=== PATIENT | male | born 1945 | race Caucasian/White ===

== ENCOUNTER 2020-11-07 15:38 | Inpatient (IN) | payer MEDICARE, OTHER, SELFPAY ==
[2020-11-07] VITALS (44 sets, daily range): BP systolic 96–126; BP diastolic 63–88; PULSE 69–115; RESP 13–25; TEMP 35.9–36.8; O2SAT 93–100; BMI 31.6
--- NOTE | ~2020-11-07 | XR_ITS ---
EXAMINATION: XR chest ET placement INDICATION: Endotracheal tube insertion, respiratory failure TECHNIQUE: Portable AP chest at 1555 hours COMPARISON: None available FINDINGS: The endotracheal tube ends approximately 6.4 cm above the ele. The nasogastric tube is f ollowed as far as the stomach. Its tip is beyond the inferior margin of the radiograph. The lungs are free of acute opacities. Cardiomegaly is noted. There is no pleural effusion or pneumothorax. The ri t costophrenic angle is excluded from the examination. IMPRESSION: 1. Endotracheal tube approximately 6.4 cm above the ele. Nasogastric tube visualized as far as the stomach. Reviewed, dictated and finalized at location A. BUS DRIVER IMPRESSION: 1. Endotracheal tube approximately 6.4 cm above the ele. Nasogastric tube vi sualized as far as the stomach.
--- NOTE | ~2020-11-07 | XR_ITS ---
EXAMINATION: XR chest 1V portable INDICATION: Respiratory failure TECHNIQUE: Portable AP chest at 0525 hours COMPARISON: 11/11/2020 FINDINGS: Minimal bibasilar airspace opacities persist without significant change. The previously josé miguel cribed small right pleural effusion is no longer evident. There is no pneumothorax. Stable cardiomega ly is noted. IMPRESSION: 1. Stable bibasilar airspace opacity, consistent with atelectasis versus pneumonia. Reviewed, dictated and finalized at location A. ING OPERATOR IMPRESSION: 1. Stable bibasilar airspace opacity, consistent with atelectasis versus pneumo hakan.
--- NOTE | ~2020-11-07 | XR_ITS ---
XR chest 1V portable DATE: 11/09/2020 06:10 INDICATION: Respiratory failure TECHNIQUE: Portable AP chest on November 09, 2020 0514 hours COMPARISON: November 07, 2020 portable AP chest at 0355 hours FINDINGS: There is mild pulmonary vascular congestion and prominence of the minor fissure suggesting subpleural edema. There are infiltrates and/atelectasis in the lower lung zones. There is elevation of the right leaf o f the diaphragm. Minimal pleural effusions are suggested. Heart size appears borderline. ET and NG tubes have been removed since November 07, 2020. IMPRESSION: Mild congestive changes Bilateral lower lung infiltrate and/atelectasis Reviewed, dictated and finalized at location A. [place] PHARMACY TECHNICIAN
--- NOTE | ~2020-11-07 | CT_ITS ---
EXAMINATION: CT brain wo con DATE: 11/07/2020 17:53 INDICATION: Status post code TECHNIQUE: Computed tomography (CT) of the head was performed without intravenous contrast. Sagittal and coronal reconstructions were performed. The mA was adjusted according to patient size. Iterative reconstruction technique was employed. The dose-length product was 605.33 mGy-cm. COMPARISON: None FINDINGS: No acute intracranial hemorrhage, acute infarction or abnormal extra axial fluid collection. There is mild scattered white matter hypoattenuation consistent with chronic small vessel ischemic disease. V entricles are normal and symmetric. No mass/mass effect. The orbits and mastoid air cells are normal. Right maxillary sinus atelectasis with complete opacification of the small maxillary sinus with inwa rd bowing of the sinus noyola. A severe mucosal thickening in the left maxillary, right sphenoid and b ilateral ethmoid and frontal sinuses. IMPRESSION: 1. Normal aging brain. No acute intracranial process. 2. Right maxillary sinus atelectasis. Reviewed, dictated and finalized at location A. ECURITY OFFICER
--- NOTE | ~2020-11-07 | XR_ITS ---
EXAMINATION: XR chest 1V portable INDICATION: Respiratory failure TECHNIQUE: Portable AP chest at 0519 hours COMPARISON: 11/10/2020 FINDINGS: There are minimal airspace opacities of the lung bases. There is a small right pleural effu pedro. No pneumothorax is identified. Cardiomegaly is noted. IMPRESSION: 1. Minimal bibasilar airspace opacity, consistent with atelectasis versus pneumonia. Reviewed, dictated and finalized at location A. ERCIAL LOAN COLLECTION OFFICER IMPRESSION: 1. Minimal bibasilar airspace opacity, consistent with atelectasis versus pneum onia.
--- NOTE | ~2020-11-07 | CT_ITS ---
EXAMINATION: CTA chest PE protocol DATE: 11/07/2020 20:25 INDICATION: Cardiac arrest TECHNIQUE: Computed tomography (CT) pulmonary angiogram of the chest was performed with 100 mL Omnipa que-350 intravenous contrast. Additional 3D reconstructions utilizing coronal maximum intensity proje ction (MIP) were performed. Automated exposure control and iterative reconstruction technique were em ployed. The dose-length product was 1037.37 mGy-cm. COMPARISON: None FINDINGS: Excellent contrast opacification of the pulmonary arteries. There is mild streak artifact from dense contrast in the superior vena cava and right atrium. Mild scattered respiratory motion artifact which does not significantly limit evaluation. No pulmonary embolism. Dependent consolidation with associa sharlene volume loss consistent with atelectasis in the bilateral lower lobes. No other airspace disease t o suggest pneumonia. No pulmonary edema, pleural effusion or pneumothorax. Moderate cardiomegaly. Ath erosclerotic coronary artery calcifications. No pericardial effusion. Thoracic aorta is normal in rosalio iber. Endotracheal tube tip 5.6 similar above the ele. Nasogastric tube tip in the stomach. No pat hologically enlarged thoracic lymphadenopathy. Cholecystectomy clips at the gallbladder fossa. Visual ized upper abdomen is otherwise unremarkable. Moderate lower thoracic spondylosis. IMPRESSION: 1. No pulmonary embolism. 2. Atelectasis in the dependent aspect of the bilateral lower lobes. 3. Cardiomegaly. Reviewed, dictated and finalized at location A. USSION TUNER
--- NOTE | ~2020-11-07 | XR_ITS ---
XR chest 1V portable DATE: 11/10/2020 06:22 INDICATION: Respiratory failure TECHNIQUE: Portable upright AP chest on November 10, 2020 at 0532 hours COMPARISON: November 09, 2020 portable AP chest at 0514 hours FINDINGS: There is mild elevation the right leaf of the diaphragm. There are infiltrates and/atelectasis in both lower lung zones. There is pulmonary vascular congestio n and redistribution. Small pleural effusions are suggested. IMPRESSION: Congestive changes and bilateral lower lung infiltrate and/atelectasis, with little inter marry change since November 09, 2020 Reviewed, dictated and finalized at location A. SAFETY AUDITOR IMPRESSION: Congestive changes and bilateral lower lung infiltrate and/atelecta sis, with little interval change since November 09, 2020
[2020-11-07] MEDS: PROPOFOL IV EMULSION 100 ML 3 MG IV CONT (15:48)
--- NOTE | 2020-11-07 15:49 | ECG_ITS ---
Measurements Intervals [place] Rate: 101 P: CT: 0 QRS: -86 QRSD: 166 T: 6 QT: 388 QTc: 503 Interpretive Statements ATRIAL FIBRILLATION WITH RAPID VENTRICULAR RESPONSE VENTRICULAR COUPLET AND VENTRICULAR PREMATURE COMPLEXES RIGHT BUNDLE BRANCH BLOCK LEFT ANTERIOR FASCICULAR BLOCK BASELINE ARTIFACT- III, AVF ABNORMAL ECG Electronically Signed On 11-07-2020 18:19:17 ASSOCIATION EXECUTIVE by Juan Carlos Ramos D.O.
[2020-11-07] MEDS: AMIODARONE 360 MG/D5W 200 ML 360 MG/200 ML BAG 33.33 MG IVPB (15:54)
[2020-11-07] MEDS: MIDAZOLAM HCL (*CRX) 2 MG/2 ML VIAL 4 MG IV PUSH (15:55)
[2020-11-07] MEDS: SODIUM CHLORIDE 0.9% IV 1,000 ML 999 ML IV CONT ×2 (16:05→16:47)
[2020-11-07 16:27] LABS: Alveolar/Arterial O2 Gradient 379.4 mmHg; Base Excess ABG -13.1 mEq/l (+/-2.0); Fractional Inspired Oxygen 100 %; HCO3 ABG 14.6 mEq/l (22.0-26.0); Oxygen Content ABG 18.6 %vol (16.0-22.0); Oxygen Saturation ABG 99.5 % (95.0-100.0); Oxyhemoglobin 98.4 % THb (90.0-100.0); PCO2 ABG 39.9 mmHg (35.0-45.0); PO2 ABG 293.7 mmHg (80.0-100.0); PO2 FiO2 Ratio Arterial Blood 2.94 %; Total Hemoglobin 12.9 g/dL (12.0-18.0)
[2020-11-07 16:28] LABS: pH ABG 7.181 (7.350-7.450)
[2020-11-07 16:29] LABS: Basophils Absolute Auto 0.1 K/mm3 (0.0-0.1); Basophils Percent Auto 0.5 % (0.2-1.2); Eosinophils Absolute Auto 0.2 K/mm3 (0-0.3); Eosinophils Percent Auto 1.7 % (0-4.4); Hematocrit 40.5 % (42.0-52.0); Hemoglobin 13.2 g/dL (14.0-18.0); Immature Granulocyte Absolute 0.25 K/mm3 (0.00-0.031); Immature Granulocyte Percent A 2.2 % (0-0.5); Lymphocytes Absolute Auto 6.76 K/mm3 (0.9-3.2); Lymphocytes Percent Auto 58.9 % (18.3-44.2); Mean Corpuscular HGB Conc 32.6 g/dl (32-36); Mean Corpuscular Hemoglobin 33.2 pg (26-34); Mean Corpuscular Volume 101.8 fl (80-100); Monocytes Absolute Auto 0.4 K/mm3 (0.1-0.6); Monocytes Percent Auto 3.4 % (2.6-8.5); Neutrophils Absolute Auto 3.8 K/mm3 (1.3-6.7); Neutrophils Percent Auto 33.3 % (45.5-73.1); Nucleated Red Blood Cells Perc 0.2 % (0.0-0.2); Platelet Count Result 206 k/mm3 (150-375); Red Blood Count 3.98 M/mm3 (4.6-6.20); Red Cell Distribution Width 12.8 % (11.5-14.5); White Blood Count 11.5 K/mm3 (4.5-10.0)
[2020-11-07 16:29] LABS: Device VENTILATOR; Site Drawn LEFT BRACHIAL
[2020-11-07 16:30] LABS: Arterial Blood Gas PEEP 5 cmH2O; Arterial Blood Gas Tidal Volume 500 ml; Arterial Blood Gas Vent Mode CMV; Arterial Blood Gas Ventilator rate 15 /MIN
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
[2020-11-07 16:35] LABS: Add Urine Microscopic? YES; Appearance Urine Turbid (Clear); Bacteria Urine Trace /hpf; Bilirubin Urine Negative (Negative); Blood Urine 1+ (Negative); Color Urine Yellow (Yellow); Glucose Urine UA 2+ mg/dL (Negative); Ketones Urine Negative (Negative); Leukocyte Esterase Ur 1+ LEU/UL (Negative); Mucus Urine Rare /lpf; Nitrate Urine Negative (Negative); Protein Urine 2+ mg/dL (Negative); Specific Grav Ur 1.016 (1.001-1.035); Urobilinogen Urine Negative mg/dL (<2.0); WBC Urine >75 /hpf
[2020-11-07 16:41] LABS: INR 1.3; Prothrombin Time 16.3 Seconds (11.1-14.7)
[2020-11-07 16:42] LABS: Partial Thromboplastin Time 31.4 SECONDS (22.3-36.8)
[2020-11-07 16:44] LABS: Lactic Acid Reflex 9.5 mmol/L (0.7-2.1)
[2020-11-07 16:44] LABS: Alkaline Phosphatase 80 U/L (38-126); Anion Gap 21 mmol/L (8-16); Aspartate Amino Transferase 107 U/L (17-59); Bilirubin,Total 0.4 mg/dL (0.2-1.3); Blood Urea Nitrogen 14 mg/dL (9-20); Calcium 8.8 mg/dL (8.4-10.2); Carbon Dioxide 14 mmol/L (22-30); Chloride 101 mmol/L (98-107); Estimated CRCL calculation 62 ml/min; Estimated Glomerular Filt Rate 59; Glucose 295 mg/dL (75-110); Magnesium 2.4 mg/dL (1.6-2.3); Potassium 2.8 mmol/L (3.4-5.0); Sodium 136 mmol/L (137-145)
[2020-11-07 16:50] LABS: Alanine Aminotransferase 66 U/L (4-50)
[2020-11-07 16:54] LABS: Troponin I < 0.012 ng/mL (0.000-0.034)
[2020-11-07] MEDS: MIDAZOLAM 100MG/NS 100ML(*CRX) 100 MG/100 ML BAG IV CONT (17:21)
[2020-11-07] MEDS: KCL 20 MEQ/SW 100 ML 100 ML 50 MEQ IVPB ×2 (18:06→21:23)
--- NOTE | 2020-11-07 19:12 | ECG_ITS ---
Measurements Intervals [place] Rate: 86 P: 56 DC: 159 QRS: -31 QRSD: 127 T: 60 QT: 402 QTc: 482 Interpretive Statements SINUS RHYTHM LEFT AXIS DEVIATION INTRAVENTRICULAR CONDUCTION DELAY CANNOT RULE OUT SEPTAL INFARCT, AGE INDETERMINATE BORDERLINE T WAVE ABNORMALITY- DIFFUSE LEADS BASELINE ARTIFACT- V5 BORDERLINE ECG Electronically Signed On 11-08-2020 6:55:27 AIR CARRIER MAINTENANCE INSPECTOR by Juan Carlos Ramos D.O.
--- NOTE | 2020-11-07 19:13 | PC.NURSE ---
Pt report to JOCELYN Pedroza at this time bedside, he has assumed pt care.
[2020-11-07 19:26] LABS: Reflex Lactic Acid Yes or No Add Lactic
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
[2020-11-07] MEDS: SODIUM BICARBONATE 8.4% 150 MEQ in DEXTROSE 5% 1,000 ML 950 ML 50 MEQ IV CONT (21:15)
[2020-11-07 21:18] LABS: INR 1.1; Partial Thromboplastin Time 26.5 SECONDS (22.3-36.8); Prothrombin Time 14.7 Seconds (11.1-14.7)
[2020-11-07 21:19] LABS: Lactic Acid 2.6 mmol/L (0.7-2.1)
[2020-11-07] MEDS: ASPIRIN 300 MG SUPPOSITORY RECTAL (21:20)
[2020-11-07] MEDS: ASPIRIN 600 MG SUPPOSITORY RECTAL (21:21)
[2020-11-07 21:25] LABS: Anion Gap 8 mmol/L (8-16); Blood Urea Nitrogen 16 mg/dL (9-20); Calcium 8.6 mg/dL (8.4-10.2); Carbon Dioxide 23 mmol/L (22-30); Chloride 105 mmol/L (98-107); Estimated CRCL calculation 73 ml/min; Estimated Glomerular Filt Rate > 60; Glucose 118 mg/dL (75-110); Potassium 4.8 mmol/L (3.4-5.0); Sodium 136 mmol/L (137-145)
[2020-11-07] MEDS: FENTANYL 2,500MCG/NS250ML(*CRX 2,500 MCG/250 ML BAG IV CONT (21:35)
[2020-11-07 21:39] LABS: Base Excess ABG -1.6 mEq/l (+/-2.0); Fractional Inspired Oxygen 60 %; HCO3 ABG 24.1 mEq/l (22.0-26.0); Oxygen Content ABG 18.8 %vol (16.0-22.0); Oxygen Saturation ABG 99.3 % (95.0-100.0); Oxyhemoglobin 97.6 % THb (90.0-100.0); PCO2 ABG 44.5 mmHg (35.0-45.0); PO2 ABG 199.9 mmHg (80.0-100.0); PO2 FiO2 Ratio Arterial Blood 3.33 %; Site Drawn LEFT RADIAL; Total Hemoglobin 13.4 g/dL (12.0-18.0); pH ABG 7.352 (7.350-7.450)
[2020-11-07 21:40] LABS: Arterial Blood Gas PEEP 5 cmH2O; Arterial Blood Gas Tidal Volume 500 ml; Arterial Blood Gas Vent Mode CMV; Arterial Blood Gas Ventilator rate 15 /MIN; Device VENTILATOR; Modified Allen's Test Unable to perform
[2020-11-07] MEDS: AMIODARONE 360 MG/D5W 200 ML 360 MG/200 ML BAG 16.67 MG IV CONT (21:44)
[2020-11-07] MEDS: HEPARIN SODIUM 5,000 UNITS/ML VIAL 4000 UNITS IV PUSH (21:53)
[2020-11-07] MEDS: HEPARIN SOD/D5W 100 UNITS/ML 25,000 UNITS/250 ML BAG 10 UNITS IV CONT (21:53)
[2020-11-07] MEDS: SODIUM CHLORIDE 0.9% IV 1,000 ML 120 ML IV CONT (22:02)
--- NOTE | 2020-11-07 22:25 | ADMGEN ---
This patient, Armin Walsh, was admitted to Intensive Care Unit-5 on 11/07/20 at 2030 Patient/family oriented to hospital policies and general routines including ID bracelet, bed and alarms, visiting hours, pain management, procedures, bathroom and other care routines, personal items, smoking policy, room service/diet, and visiting hours. Information on how to activate the Rapid Response Team has been discussed. Patient/Family are encouraged to report perceived risks to care and to ask questions if they do not understand what they are told or what they should do.
[2020-11-07 22:57] LABS: Glucose Point of Care 120 (65-105)
--- NOTE | 2020-11-07 23:26 | PC.NURSE ---
versed infusion started in ED continues to infuse at 2 mg/hr
[2020-11-08] VITALS (29 sets, daily range): BP systolic 93–156; BP diastolic 53–73; PULSE 69–88; RESP 14–25; TEMP 36.4–37.7; O2SAT 93–100; BMI 31.4
[2020-11-08 04:56] LABS: Basophils Percent Auto 0.2 % (0.2-1.2); Eosinophils Percent Auto 0.2 % (0-4.4); Hematocrit 37.7 % (42.0-52.0); Hemoglobin 12.4 g/dL (14.0-18.0); Immature Granulocyte Absolute 0.04 K/mm3 (0.00-0.031); Immature Granulocyte Percent A 0.4 % (0-0.5); Lymphocytes Absolute Auto 1.43 K/mm3 (0.9-3.2); Lymphocytes Percent Auto 14.8 % (18.3-44.2); Mean Corpuscular HGB Conc 32.9 g/dl (32-36); Mean Corpuscular Hemoglobin 32.2 pg (26-34); Mean Corpuscular Volume 97.9 fl (80-100); Mean Platelet Volume 10.9 fl (7.4-10.4); Monocytes Absolute Auto 0.7 K/mm3 (0.1-0.6); Monocytes Percent Auto 6.9 % (2.6-8.5); Neutrophils Absolute Auto 7.5 K/mm3 (1.3-6.7); Neutrophils Percent Auto 77.5 % (45.5-73.1); Platelet Count Result 169 k/mm3 (150-375); Red Blood Count 3.85 M/mm3 (4.6-6.20); Red Cell Distribution Width 12.8 % (11.5-14.5); White Blood Count 9.6 K/mm3 (4.5-10.0)
[2020-11-08 05:09] LABS: Alveolar/Arterial O2 Gradient 174.6 mmHg; Base Excess ABG -3.3 mEq/l (+/-2.0); Carboxyhemoglobin 0.3 % THb (0-2.0); Fractional Inspired Oxygen 40 %; HCO3 ABG 22.1 mEq/l (22.0-26.0); Methemoglobin ABG 0.4 %THb (0-1.5); Oxygen Content ABG 16.1 %vol (16.0-22.0); Oxygen Saturation ABG 91.5 % (95.0-100.0); Oxyhemoglobin 90.8 % THb (90.0-100.0); PCO2 ABG 40.7 mmHg (35.0-45.0); PO2 ABG 63.8 mmHg (80.0-100.0); Reduced Hemoglobin 8.5 %THb (0-5.0); Total Hemoglobin 12.6 g/dL (12.0-18.0); pH ABG 7.352 (7.350-7.450)
[2020-11-08 05:10] LABS: Cholesterol 175 mg/dL (0-200); HDL Direct 45 mg/dL; Triglycerides 158 mg/dL (<150)
[2020-11-08 05:10] LABS: Arterial Blood Gas PEEP 5 cmH2O; Arterial Blood Gas Tidal Volume 500 ml; Arterial Blood Gas Vent Mode CMV; Arterial Blood Gas Ventilator rate 15 /MIN; Device VENTILATOR; Modified Allen's Test Unable to perform; Site Drawn RIGHT RADIAL
[2020-11-08 05:20] LABS: Hemoglobin A1C 5.5 % (<5.7)
[2020-11-08 05:21] LABS: LDL Cholesterol Direct 111 mg/dL
[2020-11-08] MEDS: SODIUM CHLORIDE 0.9% IV 1,000 ML 120 ML IV CONT ×3 (06:08→22:57)
[2020-11-08 06:10] LABS: Glucose Point of Care 91 (65-105)
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
[2020-11-08] MEDS: AMIODARONE 360 MG/D5W 200 ML 360 MG/200 ML BAG 16.67 MG IV CONT ×2 (09:18→21:29)
[2020-11-08 10:37] LABS: Partial Thromboplastin Time 62.1 SECONDS (22.3-36.8)
[2020-11-08] MEDS: PERFLUTREN LIPID MICROSPHERES 1.5 ML VIAL DILUTED TO 10 ML TOTAL VOLUME IV PUSH (10:45)
[2020-11-08] MEDS: HEPARIN SODIUM 5,000 UNITS/ML VIAL 3500 UNITS IV PUSH (11:03)
--- NOTE | 2020-11-08 11:37 | WPDCNINT ---
Assessment and Plan Assessment and plan (1) Acute respiratory failure: Qualifiers: Respiratory failure complication: unspecified whether with hypoxia or hypercapnia Qualified Code(s): J96.00 - Acute respiratory failure, unspecified whether with hypoxia or hypercapnia Code(s): J96.00 - Acute respiratory failure, unspecified whether with hypoxia or hypercapnia Status: Acute Assessment and Plan: Acute Respiratory failure secondary to cardiac arrest Continue full mechanical ventilation support to prevent hypoxemia/hypercarbia and end organ damage. ABG and PCXR reviewed Will perform sedation holiday and attempt SBT to try to wean today (2) Cardiac arrest: Code(s): I46.9 - Cardiac arrest, cause unspecified Status: Acute Assessment and Plan: Patient had a VFib arrest likely secondary to coronary artery disease versus hypokalemia No recurrence of VFib overnight On amiodarone infusion Potassium has normalized after replacement Echocardiogram is ordered Patient seen by Cardiology and will need a angiogram eventually to rule out coronary disease (3) Ventricular fibrillation: Code(s): I49.01 - Ventricular fibrillation Status: Acute Assessment and Plan: See above (4) Metabolic acidosis with increased anion gap and accumulation of organic acids: Code(s): E87.2 - Acidosis Status: Acute Assessment and Plan: Likely secondary to acute cardiac arrest and hypoperfusion. Monitor acid-base status. Patient was started on on serum bicarbonate IV drip but now bicarb has normalized and IV fluids switched to normal saline (5) Hypokalemia: Code(s): E87.6 - Hypokalemia Status: Acute Assessment and Plan: Resolved after replacement Monitor (6) Transaminitis: Code(s): R74.01 - Elevation of levels of liver transaminase levels Status: Acute Assessment and Plan: Likely secondary to acute cardiac arrest and hypoperfusion. Monitor LFTs. (7) Abnormal glucose: Code(s): R73.09 - Other abnormal glucose Status: Acute Assessment and Plan: r/o undiagnosed diabetes mellitus. Accuchecks, SSI Coverage, hypoglycemic protocol. (8) Abnormal urinalysis: Code(s): R82.90 - Unspecified abnormal findings in urine Status: Acute Assessment and Plan: Urine analysis suggests UTI. Continue ceftriaxone IV. Urine and blood cultures are pending (9) Hyperlipidemia: Qualifiers: Hyperlipidemia type: unspecified Qualified Code(s): E78.5 - Hyperlipidemia, unspecified Code(s): E78.5 - Hyperlipidemia, unspecified Status: Chronic Assessment and Plan: Hold statin due to elevated LFTs (10) NSTEMI (non-ST elevated myocardial infarction): Code(s): I21.4 - Non-ST elevation (NSTEMI) myocardial infarction Status: Acute Assessment and Plan: Troponin on presentation was negative but later troponin were elevated likely secondary to cardiac arrest. Troponin this morning shows trend downwards Patient is currently on aspirin and IV heparin infusion Echo is being done Cardiology is following further management as per Cardiology Additional Plan DVT prophylaxis -heparin infusion Stress ulcer prophylaxis -PPI Nutrition -NPO Code Status - Full Code Total Critical Care Time - 35 minutes Due to a high probability of clinically significant, life threatening deterioration, the patient required my highest level of preparedness to intervene emergently and I personally spent this critical care time directly and personally managing the patient. This critical care time included obtaining a history; examining the patient; pulse oximetry; ordering and review of studies; arranging urgent treatment with development of a management plan; evaluation of patient's response to treatment; frequent reassessment; and discussions with other providers. It was exclusive of separately billable procedure
[2020-11-08 11:42] LABS: Glucose Point of Care 102 (65-105)
[2020-11-08 11:45] LABS: Alveolar/Arterial O2 Gradient 139.1 mmHg; Base Excess ABG -1.8 mEq/l (+/-2.0); Carboxyhemoglobin 0.3 % THb (0-2.0); Fractional Inspired Oxygen 35 %; HCO3 ABG 22.7 mEq/l (22.0-26.0); Methemoglobin ABG 0.3 %THb (0-1.5); Oxygen Content ABG 17.3 %vol (16.0-22.0); Oxygen Saturation ABG 93.1 % (95.0-100.0); Oxyhemoglobin 92.6 % THb (90.0-100.0); PO2 ABG 66.3 mmHg (80.0-100.0); PO2 FiO2 Ratio Arterial Blood 1.89 %; Reduced Hemoglobin 6.8 %THb (0-5.0); Total Hemoglobin 13.3 g/dL (12.0-18.0); pH ABG 7.394 (7.350-7.450)
[2020-11-08 11:46] LABS: Device VENTILATOR; Modified Allen's Test Pass; Site Drawn LEFT RADIAL
[2020-11-08 11:47] LABS: Arterial Blood Gas PEEP 5 cmH2O; Arterial Blood Gas Vent Mode SPONTANEOUS
[2020-11-08 11:48] LABS: Arterial Blood Gas Pressure Support 5 cmH2O
--- NOTE | 2020-11-08 13:59 | PCFNICU ---
ICU Rounding Note: Pt current nutrition is NPO. Nutrition recommendation: Recommend Vital AF @ 70 providing 1848 calories, 115.5 grams of protein, and 1,249 ml of water. 125 ml flushes every 4 hours to provide the estimated fluid needs. Last recorded weight is 105.2 kg. Bowel Motility: No recorded Bowel Movement. Labs Reviewed: Hgb 12.4, TG 158 Meds Noted:Fentanyl, Heparin, Novolog Following daily in ICU rounds. Assessing/reassessing every Wednesday/Wednesday.
--- NOTE | 2020-11-08 14:04 | PCNSR ---
On 11/08/20, the student, Yesica Sky, provided care and completed [facility] documentation on this patient. I have reviewed the student's documentation and agree with the findings.
--- NOTE | 2020-11-08 14:41 | PM.IMPN ---
Progress Note: A&P Assessment and Plan (1) Cardiac arrest: Code(s): I46.9 - Cardiac arrest, cause unspecified Status: Acute Assessment and Plan: Patient is status post cardiac arrest. Patient is on ventilatory support at present time. Cardiology consult was noted. Electrical Engineering Drafting Officer input noted. Will continue current plan of care and treatment and monitor electrolytes. (2) Acute respiratory failure: Qualifiers: Respiratory failure complication: unspecified whether with hypoxia or hypercapnia Qualified Code(s): J96.00 - Acute respiratory failure, unspecified whether with hypoxia or hypercapnia Code(s): J96.00 - Acute respiratory failure, unspecified whether with hypoxia or hypercapnia Status: Acute Assessment and Plan: Appears to be secondary to acute cardiac arrest. Continue ventilatory support. (3) Ventricular fibrillation: Code(s): I49.01 - Ventricular fibrillation Status: Acute Assessment and Plan: We will continue Amiodarone. Continue potassium replacement. Monitor serum potassium. Continue Cardiology recommendations. (4) Metabolic acidosis with increased anion gap and accumulation of organic acids: Code(s): E87.2 - Acidosis Status: Acute Assessment and Plan: Likely secondary to acute cardiac arrest and hypoperfusion. Monitor acid-base status. (5) Hypokalemia: Code(s): E87.6 - Hypokalemia Status: Acute Assessment and Plan: Continue potassium replacement. Monitor serum potassium. (6) Transaminitis: Code(s): R74.01 - Elevation of levels of liver transaminase levels Status: Acute Assessment and Plan: Likely secondary to acute cardiac arrest and hypoperfusion. Monitor LFTs. (7) Abnormal glucose: Code(s): R73.09 - Other abnormal glucose Status: Acute Assessment and Plan: r/o undiagnosed diabetes mellitus. Accuchecks, SSI Coverage, hypoglycemic protocol. (8) Macrocytic anemia: Code(s): D53.9 - Nutritional anemia, unspecified Status: Acute Assessment and Plan: No signs of acute blood loss. Monitor H/H, transfuse prn. (9) Abnormal urinalysis: Code(s): R82.90 - Unspecified abnormal findings in urine Status: Acute Assessment and Plan: We will initiate ceftriaxone IV. Urine culture is pending. (10) H/O: HTN (hypertension): Code(s): Z86.79 - Personal history of other diseases of the circulatory system Status: Chronic Assessment and Plan: Monitor blood pressure. Resume home antihypertensives when appropriate. (11) Hyperlipidemia: Qualifiers: Hyperlipidemia type: unspecified Qualified Code(s): E78.5 - Hyperlipidemia, unspecified Code(s): E78.5 - Hyperlipidemia, unspecified Status: Chronic Assessment and Plan: Continue statin therapy when appropriate. Additional Plan Will continue current plan of care and treatment. Patient is full code at present time. Subjective Date/time seen: 11/08/20 14:41 Interval history: Patient was seen during the morning rounds today. Patient is intubated and sedated. Patient is full code at present time. No acute distress noted. Review of Systems Review of Systems: ROS unobtainable: Yes unobtainable due to medical condition and unobtainable due to mental status Exam Const: General: other (Intubated and sedated on mechanical ventilation) Nutritional Appearance: obese Orientation/consciousness: Other orientation findings (Sedated) HENMT: Head: normal to inspection General nose exam: Normal external nose present Face and sinus: normal facial exam Mouth: Yes other (ETT in place+ ) Eyes: Pupils: Equal, round and reactive pupils present Neck: Neck: supple and no JVD Thyroid: thyroid normal Lymphatic: lymphadenopathy not noted Resp: Effort & Inspection: normal respiratory effort Auscultation: clear to auscultation bilaterally Cardio: Rate: reg
[2020-11-08 18:18] LABS: Glucose Point of Care 113 (65-105)
[2020-11-08] MEDS: HEPARIN SOD/D5W 100 UNITS/ML 25,000 UNITS/250 ML BAG 10 UNITS IV CONT (19:36)
--- NOTE | 2020-11-08 20:01 | ECHO_ITS ---
Patient Info Name: Armin Walsh Age: 75 years : 1945 Gender: Male Ht: 72 in Wt: 243 lbs BSA: 2.40 m2 HR: 70 bpm BP: 104 / 64 mmHg Heart Rhythm: Sinus Rhythm Technical Quality: Good Exam Date: 11/08/2020 9:21 AM Exam Location: [facility] Pulmonary Patient Status: Inpatient Admit Date: 11/07/2020 Staff Ordering Physician: Vincent Mckeon MD Language Asst: Jesus Hernandez RDCS Attending Provider: Cristal Bernal M.A., MD Referring Physician: Mike JJ; Exam Type: CA echo dop color flow w con Study Info Indications I46.9 - Cardiac arrest, cause unspecified Complete two-dimensional, color flow and Doppler transthoracic echocardiogram is performed with contrast to opacify the left ventricle and to improve the deliniation of the left ventricle endocardial borders. Strain analysis performed. Contrast/Agitated Saline Contrast/Ag. Saline: Definity Amount: 3.00 ml Administered By: Leticia Francis RN Existing IV Access: Yes History/Risk Factors Cardiac arrest; HTN. Summary 1. Left ventricular chamber dimension is mildly enlarged. 2. Left ventricular systolic function is mildly reduced, estimated at 35-40%. 3. The anteroseptal segment is markedly hypodynamic with mild global hypokinesia elsewhere. 4. Left atrial chamber dimension is mildly enlarged. 5. There is moderate aortic valve sclerosis. 6. There is mild aortic valve regurgitation. 7. Aortic valve leaflet separation is mildly restricted. Left Ventricle Left ventricular chamber dimension is mildly enlarged. Left ventricular systolic function is mildly reduced, estimated at 35-40%. The left ventricular diastolic function is grade I diastolic dysfunction. The anteroseptal segment is markedly hypodynamic with mild global hypokinesia elsewhere. Right Ventricle Right ventricular chamber dimension is normal. Left Atria Left atrial chamber dimension is mildly enlarged. Right Atria Right atrial chamber dimension is normal. Aortic Valve The aortic valve is trileaflet. There is moderate aortic valve sclerosis. There is mild aortic valve regurgitation. Aortic valve leaflet separation is mildly restricted. Pulmonic Valve The pulmonic valve is not well visualized. Mitral Valve The mitral valve has normal leaflets. There is trace mitral valve regurgitation. Tricuspid Valve The tricuspid valve leaflets are normal. Pericardium/Pleural The pericardium appears normal. Aorta The aortic root size at the sinus of Valsalva is normal. Left Ventricular Outflow Tract Name Value Normal LVOT 2D LVOT Diameter 2.27 cm LVOT Doppler LVOT Peak Gradient 5 mmHg LVOT Mean Gradient 3 mmHg LVOT VTI 18.50 cm LVOT VTI/AV VTI Ratio 0.54 LVOT Stroke Volume 74.49 ml LVOT CO 5.20 l/min LVOT CI 2.17 L/min/m2 Mitral Valve
[2020-11-09] VITALS (21 sets, daily range): BP systolic 127–165; BP diastolic 65–95; PULSE 72–82; RESP 12–27; TEMP 36.6–37; O2SAT 90–98
[2020-11-09 00:21] LABS: Glucose Point of Care 115 (65-105)
[2020-11-09 02:01] LABS: Partial Thromboplastin Time 115.9 SECONDS (22.3-36.8)
[2020-11-09 04:56] LABS: Hematocrit 36.3 % (42.0-52.0); Hemoglobin 11.6 g/dL (14.0-18.0); Mean Corpuscular Hemoglobin 31.9 pg (26-34); Mean Corpuscular Volume 99.7 fl (80-100); Mean Platelet Volume 10.8 fl (7.4-10.4); Platelet Count Result 150 k/mm3 (150-375); Red Blood Count 3.64 M/mm3 (4.6-6.20); Red Cell Distribution Width 12.8 % (11.5-14.5); White Blood Count 10.4 K/mm3 (4.5-10.0)
[2020-11-09 05:37] LABS: Alanine Aminotransferase 61 U/L (4-50); Albumin Level 3.3 g/dL (3.5-5.1); Alkaline Phosphatase 61 U/L (38-126); Anion Gap 4 mmol/L (8-16); Aspartate Amino Transferase 89 U/L (17-59); Bilirubin,Total 0.7 mg/dL (0.2-1.3); Blood Urea Nitrogen 11 mg/dL (9-20); Carbon Dioxide 25 mmol/L (22-30); Chloride 107 mmol/L (98-107); Estimated CRCL calculation 79 ml/min; Estimated Glomerular Filt Rate > 60; Glucose 110 mg/dL (75-110); Magnesium 1.9 mg/dL (1.6-2.3); Potassium 4.2 mmol/L (3.4-5.0); Sodium 136 mmol/L (137-145)
[2020-11-09 06:13] LABS: Alveolar/Arterial O2 Gradient 56.3 mmHg; Base Excess ABG -0.1 mEq/l (+/-2.0); Carboxyhemoglobin 0.7 % THb (0-2.0); Fractional Inspired Oxygen 24 %; HCO3 ABG 24.6 mEq/l (22.0-26.0); Methemoglobin ABG 0.5 %THb (0-1.5); Oxygen Content ABG 20.6 %vol (16.0-22.0); Oxygen Saturation ABG 93.5 % (95.0-100.0); Oxyhemoglobin 92.7 % THb (90.0-100.0); PCO2 ABG 40.1 mmHg (35.0-45.0); PO2 ABG 67.1 mmHg (80.0-100.0); Reduced Hemoglobin 6.1 %THb (0-5.0); Total Hemoglobin 15.8 g/dL (12.0-18.0); pH ABG 7.405 (7.350-7.450)
[2020-11-09 06:14] LABS: Device NASAL CANNULA; Modified Allen's Test Pass; Site Drawn RIGHT RADIAL
[2020-11-09 06:41] LABS: Glucose Point of Care 106 (65-105)
[2020-11-09] MEDS: SODIUM CHLORIDE 0.9% IV 1,000 ML 120 ML IV CONT (06:41)
[2020-11-09 08:11] LABS: Partial Thromboplastin Time 33.7 SECONDS (22.3-36.8)
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
[2020-11-09] MEDS: FUROSEMIDE INJ 40 MG/4 ML VIAL IV PUSH (08:24)
[2020-11-09] MEDS: HEPARIN SODIUM 5,000 UNITS/ML VIAL 4000 UNITS IV PUSH ×2 (08:24→16:42)
--- NOTE | 2020-11-09 08:54 | PM.IMPN ---
Progress Note: A&P Assessment and Plan (1) Cardiac arrest: Code(s): I46.9 - Cardiac arrest, cause unspecified Status: Acute Assessment and Plan: Patient is status post cardiac arrest. Patient is on ventilatory support at present time. Cardiology consult was noted. Internal Controls Analyst input noted. Will continue current plan of care and treatment and monitor electrolytes. (2) Acute respiratory failure: Qualifiers: Respiratory failure complication: unspecified whether with hypoxia or hypercapnia Qualified Code(s): J96.00 - Acute respiratory failure, unspecified whether with hypoxia or hypercapnia Code(s): J96.00 - Acute respiratory failure, unspecified whether with hypoxia or hypercapnia Status: Acute Assessment and Plan: Appears to be secondary to acute cardiac arrest. Doing better now with monitor closely. (3) Ventricular fibrillation: Code(s): I49.01 - Ventricular fibrillation Status: Acute Assessment and Plan: We will continue Amiodarone. Continue potassium replacement. Monitor serum potassium. Continue Cardiology recommendations. (4) Metabolic acidosis with increased anion gap and accumulation of organic acids: Code(s): E87.2 - Acidosis Status: Acute Assessment and Plan: Likely secondary to acute cardiac arrest and hypoperfusion. Monitor acid-base status. (5) Hypokalemia: Code(s): E87.6 - Hypokalemia Status: Acute Assessment and Plan: Continue potassium replacement. Monitor serum potassium. (6) Transaminitis: Code(s): R74.01 - Elevation of levels of liver transaminase levels Status: Acute Assessment and Plan: Likely secondary to acute cardiac arrest and hypoperfusion. Monitor LFTs. (7) Abnormal glucose: Code(s): R73.09 - Other abnormal glucose Status: Acute Assessment and Plan: r/o undiagnosed diabetes mellitus. Accuchecks, SSI Coverage, hypoglycemic protocol. (8) Macrocytic anemia: Code(s): D53.9 - Nutritional anemia, unspecified Status: Acute Assessment and Plan: No signs of acute blood loss. Monitor H/H, transfuse prn. (9) Abnormal urinalysis: Code(s): R82.90 - Unspecified abnormal findings in urine Status: Acute Assessment and Plan: We will initiate ceftriaxone IV. Urine culture is pending. (10) H/O: HTN (hypertension): Code(s): Z86.79 - Personal history of other diseases of the circulatory system Status: Chronic Assessment and Plan: Monitor blood pressure. Resume home antihypertensives when appropriate. (11) Hyperlipidemia: Qualifiers: Hyperlipidemia type: unspecified Qualified Code(s): E78.5 - Hyperlipidemia, unspecified Code(s): E78.5 - Hyperlipidemia, unspecified Status: Chronic Assessment and Plan: Continue statin therapy when appropriate. Additional Plan Will continue current plan of care and treatment. Patient is full code at present time. Subjective Date/time seen: 11/09/20 08:54 Interval history: Patient was seen during the morning rounds today. Patient is extubated and doing better now. Mild shortness of breath no chest pain. No acute distress noted. Review of Systems Review of Systems: ROS unobtainable: Yes unobtainable due to medical condition and unobtainable due to mental status Exam Const: General: other (Intubated and sedated on mechanical ventilation) Nutritional Appearance: obese Orientation/consciousness: Other orientation findings (Sedated) HENMT: Head: normal to inspection General nose exam: Normal external nose present Face and sinus: normal facial exam Mouth: Yes other (ETT in place+ ) Eyes: Pupils: Equal, round and reactive pupils present Neck: Neck: supple and no JVD Thyroid: thyroid normal Lymphatic: lymphadenopathy not noted Resp: Effort & Inspection: normal respiratory effort Auscultation: clear to auscultation bilaterally C
[2020-11-09] MEDS: AMIODARONE 360 MG/D5W 200 ML 360 MG/200 ML BAG 16.67 MG IV CONT ×2 (09:37→19:29)
--- NOTE | 2020-11-09 10:58 | WPDINTPN ---
Progress Note: A&P Assessment and Plan (1) Acute respiratory failure: Qualifiers: Respiratory failure complication: unspecified whether with hypoxia or hypercapnia Qualified Code(s): J96.00 - Acute respiratory failure, unspecified whether with hypoxia or hypercapnia Code(s): J96.00 - Acute respiratory failure, unspecified whether with hypoxia or hypercapnia Status: Acute Assessment and Plan: Acute Respiratory failure secondary to cardiac arrest Successfully extubated on 11/08/2020 -currently on 1 L oxygen via nasal cannula Chest x-ray reviewed, Lasix ordered (2) Cardiac arrest: Code(s): I46.9 - Cardiac arrest, cause unspecified Status: Acute Assessment and Plan: Patient had a VFib arrest likely secondary to coronary artery disease versus hypokalemia No recurrence of VFib overnight On amiodarone infusion Potassium has normalized after replacement Echocardiogram 11/08/2020: EF 35-40%, with wall motion abnormalities moderate aortic valve sclerosis Discussed with cardiology, coronary angiogram on 11/11/2020 (3) Ventricular fibrillation: Code(s): I49.01 - Ventricular fibrillation Status: Acute Assessment and Plan: See above (4) Metabolic acidosis with increased anion gap and accumulation of organic acids: Code(s): E87.2 - Acidosis Status: Acute Assessment and Plan: RESOLVED Likely secondary to acute cardiac arrest and hypoperfusion. Monitor acid-base status. (5) Hypokalemia: Code(s): E87.6 - Hypokalemia Status: Acute Assessment and Plan: Resolved after replacement Monitor (6) Transaminitis: Code(s): R74.01 - Elevation of levels of liver transaminase levels Status: Acute Assessment and Plan: Likely secondary to acute cardiac arrest and hypoperfusion. Monitor LFTs. -LFTS improving (7) Abnormal glucose: Code(s): R73.09 - Other abnormal glucose Status: Acute Assessment and Plan: r/o undiagnosed diabetes mellitus. Accuchecks, SSI Coverage, hypoglycemic protocol. -hemoglobin A1c is 5.5 this admission (8) Abnormal urinalysis: Code(s): R82.90 - Unspecified abnormal findings in urine Status: Acute Assessment and Plan: Urine analysis suggests UTI. Continue ceftriaxone IV. -urine culture growing Enterobacter cloacae susceptible to ceftriaxone -will continue ceftriaxone (9) Hyperlipidemia: Qualifiers: Hyperlipidemia type: unspecified Qualified Code(s): E78.5 - Hyperlipidemia, unspecified Code(s): E78.5 - Hyperlipidemia, unspecified Status: Chronic Assessment and Plan: Cardiology start patient on statin (10) NSTEMI (non-ST elevated myocardial infarction): Code(s): I21.4 - Non-ST elevation (NSTEMI) myocardial infarction Status: Acute Assessment and Plan: Troponin on presentation was negative but later troponin were elevated likely secondary to cardiac arrest. Troponin showing downward trend Patient is currently on aspirin and IV heparin infusion Echo as above Angiogram per cardiology Additional Plan DVT prophylaxis -heparin infusion Stress ulcer prophylaxis -PPI Nutrition -heart healthy Discussed with patient updated with his condition and plan of care. I answered all questions. He also has spoken and discussed his care with the meteorology teacher Code Status - Full Code Total Critical Care Time - 32 minutes Due to a high probability of clinically significant, life threatening deterioration, the patient required my highest level of preparedness to intervene emergently and I personally spent this critical care time directly and personally managing the patient. This critical care time included obtaining a history; examining the patient; pulse oximetry; ordering and review of studies; arranging urgent treatment with development of a management plan; evaluation of patient's response to treatment; frequent
[2020-11-09] MEDS: ATORVASTATIN 40 MG TABLET PO (11:47)
[2020-11-09] MEDS: ASPIRIN 81 MG ENTERIC TABLET PO (11:47)
[2020-11-09] MEDS: METOPROLOL TARTRATE 25 MG TABLET PO ×2 (11:47→21:40)
[2020-11-09 11:52] LABS: Glucose Point of Care 117 (65-105)
--- NOTE | 2020-11-09 13:02 | PCSTNOTE ---
Please refer to the Bedside Swallow Evaluation in the EMR. Please note, silent aspiration cannot be ruled out at bedside.
[2020-11-09 16:33] LABS: Partial Thromboplastin Time 33.1 SECONDS (22.3-36.8)
--- NOTE | 2020-11-09 18:05 | PC.NURSE ---
This patient, Armin Walsh, was received from [ icu 5 ] on 11/09/20 at 1805. Patient/family oriented to unit policies and routines
[2020-11-09] MEDS: HEPARIN SOD/D5W 100 UNITS/ML 25,000 UNITS/250 ML BAG 16 UNITS IV CONT (19:26)
[2020-11-09 23:37] LABS: Partial Thromboplastin Time > 200.0 SECONDS (22.3-36.8)
[2020-11-10] VITALS (20 sets, daily range): BP systolic 120–154; BP diastolic 67–88; PULSE 63–97; RESP 18–24; TEMP 35.9–36.8; O2SAT 90–96
[2020-11-10] MEDS: AMIODARONE 360 MG/D5W 200 ML 360 MG/200 ML BAG 16.67 MG IV CONT (07:18)
[2020-11-10 08:08] LABS: Hematocrit 33.3 % (42.0-52.0); Hemoglobin 11.4 g/dL (14.0-18.0); Mean Corpuscular HGB Conc 34.2 g/dl (32-36); Mean Corpuscular Hemoglobin 33.3 pg (26-34); Mean Corpuscular Volume 97.4 fl (80-100); Mean Platelet Volume 10.8 fl (7.4-10.4); Platelet Count Result 146 k/mm3 (150-375); Red Blood Count 3.42 M/mm3 (4.6-6.20); Red Cell Distribution Width 12.9 % (11.5-14.5); White Blood Count 8.3 K/mm3 (4.5-10.0)
[2020-11-10] MEDS: METOPROLOL TARTRATE 25 MG TABLET PO ×2 (08:10→20:37)
[2020-11-10] MEDS: ASPIRIN 81 MG ENTERIC TABLET PO (08:11)
[2020-11-10] MEDS: ATORVASTATIN 40 MG TABLET PO (08:11)
[2020-11-10 08:19] LABS: Partial Thromboplastin Time 94.4 SECONDS (22.3-36.8)
[2020-11-10 08:22] LABS: Alanine Aminotransferase 46 U/L (4-50); Albumin Level 3.4 g/dL (3.5-5.1); Alkaline Phosphatase 64 U/L (38-126); Anion Gap 4 mmol/L (8-16); Aspartate Amino Transferase 85 U/L (17-59); Bilirubin,Total 0.4 mg/dL (0.2-1.3); Blood Urea Nitrogen 10 mg/dL (9-20); Calcium 8.8 mg/dL (8.4-10.2); Carbon Dioxide 29 mmol/L (22-30); Chloride 105 mmol/L (98-107); Estimated CRCL calculation 74 ml/min; Estimated Glomerular Filt Rate > 60; Glucose 116 mg/dL (75-110); Magnesium 1.7 mg/dL (1.6-2.3); Potassium 3.7 mmol/L (3.4-5.0); Sodium 138 mmol/L (137-145)
--- NOTE | 2020-11-10 10:35 | PM.IMPN ---
Progress Note: A&P Assessment and Plan (1) Cardiac arrest: Code(s): I46.9 - Cardiac arrest, cause unspecified Status: Acute Assessment and Plan: Patient is status post cardiac arrest. Patient is on ventilatory support at present time. Cardiology consult was noted. Knife Finisher input noted. Will continue current plan of care and treatment and monitor electrolytes. (2) Acute respiratory failure: Qualifiers: Respiratory failure complication: unspecified whether with hypoxia or hypercapnia Qualified Code(s): J96.00 - Acute respiratory failure, unspecified whether with hypoxia or hypercapnia Code(s): J96.00 - Acute respiratory failure, unspecified whether with hypoxia or hypercapnia Status: Acute Assessment and Plan: Appears to be secondary to acute cardiac arrest. Doing better now with monitor closely. (3) Ventricular fibrillation: Code(s): I49.01 - Ventricular fibrillation Status: Acute Assessment and Plan: We will continue Amiodarone. Continue potassium replacement. Monitor serum potassium. Continue Cardiology recommendations. (4) Metabolic acidosis with increased anion gap and accumulation of organic acids: Code(s): E87.2 - Acidosis Status: Acute Assessment and Plan: Likely secondary to acute cardiac arrest and hypoperfusion. Monitor acid-base status. (5) Hypokalemia: Code(s): E87.6 - Hypokalemia Status: Acute Assessment and Plan: Resolved (6) Transaminitis: Code(s): R74.01 - Elevation of levels of liver transaminase levels Status: Acute Assessment and Plan: Likely secondary to acute cardiac arrest and hypoperfusion. Monitor LFTs. (7) Abnormal glucose: Code(s): R73.09 - Other abnormal glucose Status: Acute Assessment and Plan: r/o undiagnosed diabetes mellitus. Accuchecks, SSI Coverage, hypoglycemic protocol. (8) Macrocytic anemia: Code(s): D53.9 - Nutritional anemia, unspecified Status: Acute Assessment and Plan: No signs of acute blood loss. Monitor H/H, transfuse prn. (9) Abnormal urinalysis: Code(s): R82.90 - Unspecified abnormal findings in urine Status: Acute Assessment and Plan: We will initiate ceftriaxone IV. Urine culture shows Enterobacter sensitive to ceftriaxone, will continue antibiotic. (10) H/O: HTN (hypertension): Code(s): Z86.79 - Personal history of other diseases of the circulatory system Status: Chronic Assessment and Plan: Monitor blood pressure. Resume home antihypertensives when appropriate. (11) Hyperlipidemia: Qualifiers: Hyperlipidemia type: unspecified Qualified Code(s): E78.5 - Hyperlipidemia, unspecified Code(s): E78.5 - Hyperlipidemia, unspecified Status: Chronic Assessment and Plan: Continue statin therapy when appropriate. Additional Plan Will continue current plan of care and treatment. Patient is full code at present time. Subjective Date/time seen: 11/10/20 10:35 Interval history: Patient was seen during the morning rounds today. Patient is extubated and doing better now. Mild shortness of breath no chest pain. No acute distress noted. No new complaints Review of Systems Review of Systems: ROS unobtainable: Yes unobtainable due to medical condition and unobtainable due to mental status Exam Const: General: other (Intubated and sedated on mechanical ventilation) Nutritional Appearance: obese Orientation/consciousness: Other orientation findings (Sedated) HENMT: Head: normal to inspection General nose exam: Normal external nose present Face and sinus: normal facial exam Mouth: Yes other (ETT in place+ ) Eyes: Pupils: Equal, round and reactive pupils present Neck: Neck: supple and no JVD Thyroid: thyroid normal Lymphatic: lymphadenopathy not noted Resp: Effort & Inspection: normal respiratory effort Auscultation: clear to
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
[2020-11-10] MEDS: HEPARIN SOD/D5W 100 UNITS/ML 25,000 UNITS/250 ML BAG 13 UNITS IV CONT (15:27)
[2020-11-10 16:14] LABS: Partial Thromboplastin Time 72.8 SECONDS (22.3-36.8)
[2020-11-11] VITALS (30 sets, daily range): BP systolic 127–172; BP diastolic 65–98; PULSE 54–74; RESP 12–20; TEMP 35.8–36.7; O2SAT 91–100
[2020-11-11 04:58] LABS: Mean Corpuscular HGB Conc 33.3 g/dl (32-36); Mean Corpuscular Hemoglobin 32.1 pg (26-34); Mean Corpuscular Volume 96.2 fl (80-100); Mean Platelet Volume 11.1 fl (7.4-10.4); Platelet Count Result 163 k/mm3 (150-375); Red Blood Count 3.43 M/mm3 (4.6-6.20); Red Cell Distribution Width 12.7 % (11.5-14.5); White Blood Count 6.5 K/mm3 (4.5-10.0)
[2020-11-11 05:28] LABS: Alanine Aminotransferase 43 U/L (4-50); Albumin Level 3.4 g/dL (3.5-5.1); Alkaline Phosphatase 62 U/L (38-126); Anion Gap 6 mmol/L (8-16); Aspartate Amino Transferase 74 U/L (17-59); Bilirubin,Total 0.3 mg/dL (0.2-1.3); Blood Urea Nitrogen 12 mg/dL (9-20); Calcium 8.6 mg/dL (8.4-10.2); Carbon Dioxide 28 mmol/L (22-30); Chloride 105 mmol/L (98-107); Estimated CRCL calculation 73 ml/min; Estimated Glomerular Filt Rate > 60; Glucose 100 mg/dL (75-110); Magnesium 1.8 mg/dL (1.6-2.3); Potassium 3.8 mmol/L (3.4-5.0); Sodium 139 mmol/L (137-145)
[2020-11-11 06:31] LABS: Partial Thromboplastin Time 97.6 SECONDS (22.3-36.8)
[2020-11-11] MEDS: ATORVASTATIN 40 MG TABLET PO (08:17)
[2020-11-11] MEDS: METOPROLOL TARTRATE 25 MG TABLET PO (08:17)
[2020-11-11] MEDS: AMIODARONE HCL 200 MG TABLET PO (08:17)
[2020-11-11] MEDS: ASPIRIN 81 MG ENTERIC TABLET PO (08:17)
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
--- NOTE | 2020-11-11 11:05 | PC.NURSE ---
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
--- NOTE | 2020-11-11 11:13 | PM.IMPN ---
Progress Note: A&P Assessment and Plan (1) Cardiac arrest: Code(s): I46.9 - Cardiac arrest, cause unspecified Status: Acute Assessment and Plan: Patient is status post cardiac arrest. Patient is on ventilatory support at present time. Cardiology consult was noted. [employer] Kn[employer] input noted. Will continue current plan of care and treatment and monitor electrolytes. (2) Acute respiratory failure: Qualifiers: Respiratory failure complication: unspecified whether with hypoxia or hypercapnia Qualified Code(s): J96.00 - Acute respiratory failure, unspecified whether with hypoxia or hypercapnia Code(s): J96.00 - Acute respiratory failure, unspecified whether with hypoxia or hypercapnia Status: Acute Assessment and Plan: Appears to be secondary to acute cardiac arrest. Doing better now with monitor closely. (3) Ventricular fibrillation: Code(s): I49.01 - Ventricular fibrillation Status: Acute Assessment and Plan: We will continue Amiodarone. Continue potassium replacement. Monitor serum potassium. Continue Cardiology recommendations. (4) Metabolic acidosis with increased anion gap and accumulation of organic acids: Code(s): E87.2 - Acidosis Status: Acute Assessment and Plan: Likely secondary to acute cardiac arrest and hypoperfusion. Monitor acid-base status. (5) Hypokalemia: Code(s): E87.6 - Hypokalemia Status: Acute Assessment and Plan: Resolved (6) Transaminitis: Code(s): R74.01 - Elevation of levels of liver transaminase levels Status: Acute Assessment and Plan: Likely secondary to acute cardiac arrest and hypoperfusion. Monitor LFTs. (7) Abnormal glucose: Code(s): R73.09 - Other abnormal glucose Status: Acute Assessment and Plan: r/o undiagnosed diabetes mellitus. Accuchecks, SSI Coverage, hypoglycemic protocol. (8) Macrocytic anemia: Code(s): D53.9 - Nutritional anemia, unspecified Status: Acute Assessment and Plan: No signs of acute blood loss. Monitor H/H, transfuse prn. (9) Abnormal urinalysis: Code(s): R82.90 - Unspecified abnormal findings in urine Status: Acute Assessment and Plan: We will initiate ceftriaxone IV. Urine culture shows Enterobacter sensitive to ceftriaxone, will continue antibiotic. (10) H/O: HTN (hypertension): Code(s): Z86.79 - Personal history of other diseases of the circulatory system Status: Chronic Assessment and Plan: Monitor blood pressure. Resume home antihypertensives when appropriate. (11) Hyperlipidemia: Qualifiers: Hyperlipidemia type: unspecified Qualified Code(s): E78.5 - Hyperlipidemia, unspecified Code(s): E78.5 - Hyperlipidemia, unspecified Status: Chronic Assessment and Plan: Continue statin therapy when appropriate. Additional Plan Will continue current plan of care and treatment. Patient is full code at present time. Patient urine shows entero sensitive to ceftriaxone, will continue that. Patient is scheduled for cardiac cath today. Subjective Date/time seen: 11/11/20 11:13 Interval history: Patient was seen during the morning rounds today. Patient is extubated and doing better now. Mild shortness of breath no chest pain. No acute distress noted. No new complaints Mood stable Review of Systems Review of Systems: ROS unobtainable: Yes unobtainable due to medical condition and unobtainable due to mental status Exam Const: General: other (Intubated and sedated on mechanical ventilation) Nutritional Appearance: obese Orientation/consciousness: Other orientation findings (Sedated) HENMT: Head: normal to inspection General nose exam: Normal external nose present Face and sinus: normal facial exam Mouth: Yes other (ETT in place+ ) Eyes: Pupils: Equal, round and reactive pupils present Neck: Neck: supple and no JVD Thyroid:
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
[2020-11-11] MEDS: SODIUM CHLORIDE 0.9% IV 1,000 ML 125 ML IV CONT (14:54)
[2020-11-12] VITALS (8 sets, daily range): BP systolic 135–150; BP diastolic 60–72; PULSE 63–77; RESP 16–20; TEMP 36.4–36.7; O2SAT 94–98
[2020-11-12 04:59] LABS: Hematocrit 32.6 % (42.0-52.0); Hemoglobin 11.1 g/dL (14.0-18.0); Mean Corpuscular Hemoglobin 33.5 pg (26-34); Mean Corpuscular Volume 98.5 fl (80-100); Mean Platelet Volume 10.2 fl (7.4-10.4); Platelet Count Result 168 k/mm3 (150-375); Red Blood Count 3.31 M/mm3 (4.6-6.20); Red Cell Distribution Width 12.8 % (11.5-14.5); White Blood Count 5.8 K/mm3 (4.5-10.0)
[2020-11-12 05:20] LABS: Alanine Aminotransferase 39 U/L (4-50); Albumin Level 3.5 g/dL (3.5-5.1); Alkaline Phosphatase 56 U/L (38-126); Anion Gap 3 mmol/L (8-16); Aspartate Amino Transferase 56 U/L (17-59); Bilirubin,Total 0.4 mg/dL (0.2-1.3); Blood Urea Nitrogen 11 mg/dL (9-20); Carbon Dioxide 31 mmol/L (22-30); Chloride 105 mmol/L (98-107); Estimated CRCL calculation 73 ml/min; Estimated Glomerular Filt Rate > 60; Glucose 115 mg/dL (75-110); Magnesium 1.8 mg/dL (1.6-2.3); Potassium 3.7 mmol/L (3.4-5.0); Sodium 139 mmol/L (137-145)
--- NOTE | 2020-11-12 08:56 | WPDCDIQUERY2 ---
CDI Query Clarification Request -Urine culture growing >100,000 enterobacter colacae - Patient urine shows entero sensitive to ceftriaxone, will continue that documented 11/11 Please clarify if there is a possible corresponding diagnosis for above findings. <Joan Cornell RN - Last Filed: 11/12/20 09:49>
[2020-11-12] MEDS: ATORVASTATIN 40 MG TABLET PO (09:31)
[2020-11-12] MEDS: METOPROLOL SUCCINATE EXT REL 50 MG TABCR PO (09:31)
[2020-11-12] MEDS: ASPIRIN 81 MG ENTERIC TABLET PO (09:31)
[2020-11-12] MEDS: lisinopriL 10 MG TABLET PO (09:31)
[2020-11-12] MEDS: AMIODARONE HCL 200 MG TABLET PO (09:32)
--- NOTE | 2020-11-12 10:17 | PM.PNCARD ---
Progress Note: A&P Assessment and Plan (1) Ventricular fibrillation: Code(s): I49.01 - Ventricular fibrillation Status: Acute Assessment and Plan: Patient is status post successfully resuscitated VFib cardiac arrest. His coronary angiogram reportedly shows distal LAD high-grade stenosis; LVEF 35%. -patient will need ICD placement for secondary prevention of sudden cardiac . He will need external variable defibrillator-life vest before discharge. He is currently awaiting for that. Patient will see electrophysiology as an outpatient. -continue amiodarone for now (2) CAD (coronary artery disease): Code(s): I25.10 - Atherosclerotic heart disease of jamul coronary artery without angina pectoris Status: Acute Assessment and Plan: Aspirin, statin, beta-elizabeth (3) Cardiomyopathy: Code(s): I42.9 - Cardiomyopathy, unspecified Status: Acute Assessment and Plan: Beta-elizabeth, SANDRA-inhibitor. No significant volume overload at present. Subjective Date/time seen: 11/12/20 10:17 75-year-old male with no known prior cardiac history admitted to the hospital with successfully resuscitated VFib cardiac arrest. Coronary angiogram reportedly showed high-grade stenosis in the distal LAD, LVEF 35%. Date of service 11/12/2020-patient denies any chest pain, shortness of breath, palpitation, or dizziness. He does not recall the details surrounding his hospitalization. Exam Narrative: Exam Narrative: PHYSICAL EXAMINATION: GENERAL: Alert, oriented, no acute distress MENTAL STATUS: affect appropriate to mood EYES: Extraocular movements intact, no pallor EARS: External ears appear normal, hearing grossly normal NOSE: Normal and patent, no discharge MOUTH: Mucous membranes moist, tongue normal NECK: Supple, no JVD CHEST: Good respiratory effort, clear to auscultation HEART: Normal rate, regular rhythm, normal S1 and S2, no audible murmurs ABDOMEN: Soft, nontender NEUROLOGICAL: Alert, oriented, normal speech, no gross motor deficits MUSCULOSKELETAL: No major deformity, no amputation EXTREMITIES: No pedal edema, no clubbing, no cyanosis SKIN: no rash on the exposed area, no cyanosis PSYCHIATRIC: Normal mood, appropriate affect Objective Data Vital Signs Vital Signs: Vital Signs - 24 hr 11/11/20 11:50 11/11/20 12:05 11/11/20 12:20 Temperature 36.6 C Pulse Rate 63 58 L 54 L Respiratory Rate 16 15 13 Blood Pressure 131/74 134/74 138/72 Pulse Oximetry 93 93 98 11/11/20 12:25 11/11/20 12:30 11/11/20 12:35 Temperature Pulse Rate 57 L 60 60 Respiratory Rate 12 16 12 Blood Pressure 138/67 140/65 143/72 H Pulse Oximetry 97 95 95 11/11/20 12:40 11/11/20 12:45 11/11/20 13:00 Temperature Pulse Rate 55 L 55 L 56 L Respiratory Rate 17 15 16 Blood Pressure 134/68 127/75 137/71 Pulse Oximetry 95 91 92 11/11/20 13:15 11/11/20 13:30 11/11/20 14:00 Temperature 35.9 C L Pulse Rate 57 L 55 L 70 Respiratory Rate 16 15 16 Blood Pressure 132/76 131/76 135/71 Pulse Oximetry 92 94 95 11/11/20 14:42 11/11/20 15:30 11/11/20 16:00 Temperature 35.8 C L 36.2 C L Pulse Rate 64 64 68 Respiratory Rate 18 16 Blood Pressure 136/80 140/67 Pulse Oximetry 98 95 11/11/20 16:45 11/11/20 17:45 11/11/20 18:00 Temperature 35.8 C L 36.1 C L Pulse Rate 68 70 62 Respiratory Rate 16 18 Blood Pressure 172/82 H 140/75 Pulse Oximetry 97 97 11/11/20 19:00 11/11/20 20:00 11/11/20 22:00 Temperature 36.1 C L 36.7 C Pulse Rate 74 62 68 Respiratory Rate 16 18 Blood Pressure 138/80 141/67 H Pulse Oximetry 97 100 11/11/20 23:15 11/12/20 00:00 11/12/20 02:00 Temperature 36.7 C Pulse Rate 68 63 68 Respiratory Rate 18 20 Blood Pressure 135/60 Pulse Oximetry 100 98 11/12/20 04:00 11/12/20 06:00 11/12/20 08:00 Temperature 36.7 C 36.4 C Pulse Rate 74 74 70 Respiratory Rate 20 18 Blood Pressure 150/72 H 140/62 Pulse Oximetry 94 96
--- NOTE | 2020-11-12 13:06 | PCDIET ---
Nutrition Follow-Up Complete: Nutrition Diagnosis: Inadequate oral intake related to vent as evidenced by NPO. Nutrition Goal: Patient to tolerate tube feeding. Goal no longer applicable. New Goal: Patient to meet estimated nutritional needs. Patient consuming 100% of recorded meals on heart healthy diet and reports good appetite. Family member in room feels patient is eating very well and would like more food on trays. Last recorded weight is 108 kg which is increased from last review. Bowel Motility: No documented BM. Labs Reviewed: Hgb (11.1), Hct (32.6), Glu (115) Meds Noted: Lipitor, Rocephin, Lisinopril, Toprol XL Additional Notes: No pressure sores documented. Will continue to monitor. Nutrition Monitoring and Evaluation: Follow up in 5 days.
--- NOTE | 2020-11-12 13:39 | PCOTNOTE ---
Attempted to see patient for skilled OT, patient declined to participate in any activities as he and his are just waiting on his life vest and patient is to be discharged. Will continue plan of care tomorrow, 11/13/2020 if patient does not discharge.
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
== END 2020-11-12 17:35 | disposition home or self-care (01) | DRG 286 ==
LOC: ANHED 18:17 → ANHICU 11-08 12:00 → ANHIMU 11-11 08:29 → ANHICU 11-15 09:26 → ANHIMU 11-15 09:26
PROVIDERS: Family Medicine; Internal Medicine; Specialist; Admitting Provider Internal Medicine; Emergency Provider Emergency Medicine; Visit Provider Internal Medicine
PROC: 4A023N7 Measurement of Cardiac Sampling and Pressure, Left Heart, Percutaneous Approach (ICD-10-PCS; CPT 93452; principal; 2020-11-11 13:00)
DX: I49.01 Ventricular fibrillation (principal); J96.00 Acute respiratory failure, unspecified whether with hypoxia or hypercapnia; E87.2 Acidosis; N39.0 Urinary tract infection, site not specified; B95.2 Enterococcus as the cause of diseases classified elsewhere; E87.6 Hypokalemia; I25.10 Atherosclerotic heart disease of native coronary artery without angina pectoris; I46.2 Cardiac arrest due to underlying cardiac condition; R74.01 Elevation of levels of liver transaminase levels; R73.09 Other abnormal glucose; D53.9 Nutritional anemia, unspecified; E78.5 Hyperlipidemia, unspecified; I10 Essential (primary) hypertension; E66.9 Obesity, unspecified; Z68.32 Body mass index [BMI] 32.0-32.9, adult; Z90.49 Acquired absence of other specified parts of digestive tract; Z87.891 Personal history of nicotine dependence; I42.9 Cardiomyopathy, unspecified; I48.91 Unspecified atrial fibrillation
CPT/HCPCS: 36415; 36600; 70450; 71045; 71275; 80048; 80053; 80061; 81001; 82375; 82805; 82948; 83036; 83050; 83605; 83735; 84443; 84484; 85025; 85027; 85610; 85730; 87040; 87077; 87086; 87088; 87186; 92610; 92950; 93005; 93458; 96361; 96365; 96366; 96368; 96375; 97110; 97116; 97161; 97165; 97530; 97535; 99291; A9270; C1769; C1887; C1894; C8929; J0131; J0282; J0696; J1644; J1940; J2250; J2704; J3010; J3480; J7030; J7040; J7070; Q9957; Q9967